=== PATIENT | female | born 1985 | race Caucasian/White ===

== ENCOUNTER → 2020-07-16 | Outpatient (REF) | payer OTHER | LOC: M SFHCWAGY 12:27 | PROVIDERS: ATTEND Advanced Practice Midwife | DX: Z12.4 Encounter for screening for malignant neoplasm of cervix (principal) ==

== ENCOUNTER → 2021-09-05 | Outpatient (REF) | payer OTHER | LOC: M PLALAB 15:09 | PROVIDERS: ATTEND Advanced Practice Midwife | DX: R87.810 Cervical high risk human papillomavirus (HPV) DNA test positive (principal); Z12.4 Encounter for screening for malignant neoplasm of cervix ==

== ENCOUNTER → 2021-09-06 | Outpatient (REF) | payer OTHER | LOC: M SFHCWAGY 16:56 | PROVIDERS: ATTEND Advanced Practice Midwife | DX: R87.810 Cervical high risk human papillomavirus (HPV) DNA test positive (principal); Z12.4 Encounter for screening for malignant neoplasm of cervix | CPT/HCPCS: 87624; G0123 ==

== ENCOUNTER → 2022-10-20 | Outpatient (REF) | payer OTHER | LOC: M SFHCWAGY 18:02 | PROVIDERS: ATTEND Advanced Practice Midwife | DX: Z12.4 Encounter for screening for malignant neoplasm of cervix (principal) | CPT/HCPCS: 87624; G0123 ==

== ENCOUNTER → 2023-10-23 | Outpatient (REF) | payer OTHER | LOC: M SFHCWAGY 16:51 | PROVIDERS: ATTEND Advanced Practice Midwife | DX: Z12.4 Encounter for screening for malignant neoplasm of cervix (principal) | CPT/HCPCS: 87624; G0123 ==

== ENCOUNTER → 2024-10-25 | Outpatient (REF) | payer OTHER, BC ==
[2024-10-27 16:12] LABS: HPV APTIMA Not Detected (Not Detected)
== END ==
LOC: M SFHCWAGY 17:57
PROVIDERS: ATTEND Advanced Practice Midwife
DX: Z12.4 Encounter for screening for malignant neoplasm of cervix (principal)
CPT/HCPCS: 87624; G0123